=== PATIENT | male | born 1995 | race African-American/Black ===

== ENCOUNTER 2023-05-18 15:00 | Emergency (ER) | payer OTHER, SELFPAY ==
[2023-05-18 15:04] VITALS: BP 135/95; PULSE 65; RESP 18; TEMP 36.4; O2SAT 100
--- NOTE | 2023-05-18 16:11 | ED.GENADULT ---
HPI - General Adult General Chief complaint: Unspecified Stated complaint: burning in lumbar area/inguinal hernia also Time Seen by Provider: 05/18/23 16:00 Source: patient Mode of arrival: ambulatory Limitations: no limitations History of Present Illness HPI narrative: This is a 27-year-old male who presents to the ED with chief complaint of lower back pain ongoing for several months. 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 Reports pain was worse in the last couple of days with a ?burning to the lower back. States he has had a diagnosis for his lumbar spine in the past but cannot tell me what this is. States he took a course of ibuprofen several months ago but has not taken any recently. Secondary complaints of intermittent hernia for the last several months as well. Reports this has been a known problem in the past. Reports it comes and goes. Reports mild swelling to the left pubic/groin area. He is able to reduce on his own. Denies any skin changes. Denies fevers, chills, groin numbness or weakness, lower extremity numbness or weakness, bowel or bladder dysfunction, nausea, vomiting, problems with bowel movements. Related Data Allergies Allergy/AdvReac Type Severity Reaction Status Date / Time No Known Allergies Allergy Verified 05/18/23 15:01 Review of Systems Review of Systems: All systems as dictated in HPI Exam Narrative: GENERAL: Well-appearing, well-nourished, and in no acute distress. HEAD: Normocephalic, atraumatic. EYES: PERRLA and EOMI. ENT: Nares clear, no rhinorrhea or epistaxis. Mucous membranes moist. Oropharynx without tonsillar hypertrophy exudate or other lesions. NECK: Supple. No adenopathy or masses. CHEST: No respiratory distress. Clear to auscultation. No wheezes rales or rhonchi HEART: Regular rate and rhythm. No murmur heard. Normal peripheral pulses. ABDOMEN: Soft, nontender, nondistended, normal active bowel sounds. MSK: Normal range of motion. No edema. No midline spinal tenderness throughout. 5/5 strength and sensation in the upper lower extremities. Ambulatory without difficulty. Mild bilateral paraspinal tenderness. SKIN: Warm, dry, no rash. NEURO: Alert and oriented x3. No focal deficits. PSYCH: Normal mood and affect. : Small reducible left groin hernia noted to the superior pubic area. No skin changes. Minimal tenderness. Course Vital Signs Vital signs: Vital Signs Temperature 97.6 F 05/18/23 15:04 Pulse Rate 65 05/18/23 15:04 Respiratory Rate 18 05/18/23 15:04 Blood Pressure 135/95 H 05/18/23 15:04 Pulse Oximetry 100 05/18/23 15:04 Oxygen Delivery Room Air 05/18/23 15:04 Temperature 97.6 F 05/18/23 15:04 Pulse Rate 65 05/18/23 15:04 Respiratory Rate 18 05/18/23 15:04 Blood Pressure 135/95 H 05/18/23 15:04 Pulse Oximetry 100 05/18/23 15:04 Oxygen Delivery Room Air 05/18/23 15:04 Medical Decision Making MDM Narrative Medical decision making narrative: This is a 27-year-old male who presents to the ED with chief complaint of lower back pain onset times several months as well as intermittent hernia for the last several months. Denies any recent injuries. Vitals are normal. Exam is benign. He does have a reducible inguinal hernia. no midline spinal tenderness on exam. No red flag signs for back pain on exam. We discussed that he will likely need to see a surgeon for this hernia but is not emergent at this point. We also discussed that the back pain will need to be addressed by PCP and potentially physical therapy. Shared decision making to avoid any further workup at this point. Pt will be discharged in stable condition. Return precautions given and supportive measures discussed. Pt is understanding and agreeable with plan for discharge and follow-up with PCP. Vital Signs Vital Signs: Vital Signs Temperature 97.6 F 05/18/23 15:04 Pulse Rate 65 05/18/23 15:04 R
== END 2023-05-18 16:31 | disposition home or self-care (01) ==
LOC: ANHED 16:20
PROVIDERS: Emergency Provider Physician Assistant
DX: M54.50 Low back pain, unspecified (principal); K46.9 Unspecified abdominal hernia without obstruction or gangrene
CPT/HCPCS: 99283